=== PATIENT | male | born 1950 | race Native Hawaiian/Other Pacific Islander ===

== ENCOUNTER 2021-06-23 09:06 | Outpatient (CLI) | payer OTHER | END 2021-06-23 20:41 | disposition home or self-care (01) | LOC: CT 09:06 | PROVIDERS: ATTEND Nurse Practitioner Family | DX: J32.9 Chronic sinusitis, unspecified (principal) ==

== ENCOUNTER 2021-09-28 10:45 | Outpatient (CLI) | payer OTHER ==
[2021-09-28 11:29] LABS: POTASSIUM 7.5 mmol/L (3.6-5.2)
== END 2021-09-28 19:00 | disposition home or self-care (01) ==
LOC: LAB 10:45
PROVIDERS: ATTEND Psychiatry & Neurology Addiction Medicine
DX: J44.9 Chronic obstructive pulmonary disease, unspecified (principal); Z79.899 Other long term (current) drug therapy
CPT/HCPCS: 80053; 80061

== ENCOUNTER 2021-09-29 11:11 | Outpatient (CLI) | payer OTHER ==
[2021-09-29 11:25] LABS: PLATELET COUNT 256 K/uL (142-355)
== END 2021-09-29 19:04 | disposition home or self-care (01) ==
LOC: LABW 11:11
PROVIDERS: ATTEND Internal Medicine Cardiovascular Disease
DX: J44.9 Chronic obstructive pulmonary disease, unspecified (principal); Z79.899 Other long term (current) drug therapy
CPT/HCPCS: 36415; 85027

== ENCOUNTER 2021-12-10 10:05 | Outpatient (CLI) | payer OTHER | END 2021-12-10 18:55 | disposition home or self-care (01) | LOC: MAMMO 10:05 | PROVIDERS: ATTEND Nurse Practitioner Family | DX: N63.25 Unspecified lump in the left breast, overlapping quadrants (principal) ==